=== PATIENT | male | born 1970 | race African-American/Black ===

== ENCOUNTER → 2016-12-19 | Day surgery (SDC) | payer BC ==
[~2016-12-19] MED LIST: ALLEGRA60 M1 PO; AMOXICILLIN250 MG PO; BENTYL20 MG PO; FLEXERIL10 MG; LORTAB 5/500 TA1 TA1 PO; NO MEDICATIONS; NORCO1 TAB 10/3; ZITHROMAX PO
--- NOTE | ~2016-12-19 | OR ---
Unit #: [id number] #: [id number] Patient: JUSTUS SOSA [id number] [address] [place], [place] [address] [id number] O MR#: [id number] NAME: JUSTUS SOSA ROOM: Date of Procedure: 12/19/2016 Admission Date: 12/19/2016 Surgeon: Polo Lucero M.D. : 1970 Attending Physician: Polo Lucero M.D. Referring Physician: Polo Lucero M.D. Primary Care Physician: Jeremy Miranda M.D. OPERATIVE REPORT PREOPERATIVE DIAGNOSES Colorectal cancer screening in a high-risk patient. The patient has personal history of colon polyps and family history of colon cancer. PROCEDURES PERFORMED Colonoscopy and polypectomy. POSTOPERATIVE DIAGNOSES 1. The patient had 2 sessile polyps, both were located in the proximal and distal sigmoid colon. These were about 4 to 5 mm each and were removed using snare polypectomy. 2. Mild sigmoid and descending colon diverticulosis. 3. Rest of the examination up to cecum and terminal ileum was normal. The quality of the prep was good. RECOMMENDATIONS 1. Follow up results of polyp histology. 2. Consider repeat colonoscopy in 5 years. SEDATION USED MAC. DESCRIPTION OF PROCEDURE Following detailed explanation of potential risks and complications of a colonoscopy, namely perforation, bleeding, and complications related to sedation, the patient was brought to GI lab and laid in the left lateral decubitus position. A digital rectal examination was performed, which was normal. Lubricated tip of the Olympus video colonoscope was inserted through the anus and advanced under direct vision. The scope was advanced and passed up to sigmoid into descending colon. Scant small diverticula were noted in this area. The scope tip was then navigated all the way up to cecum with visualization of the ileocecal valve and the appendiceal orifice. Preparation was good with good visualization and photodocumentation was obtained. Successive segments of the colonic mucosa were examined upon withdrawal and appeared unremarkable except for 2 sessile polyps, one each in the proximal and distal sigmoid colon. These were small about 5 mm each, both were removed using snare polypectomy. They were retrieved and sent for histology. No additional polyps noted. Other than the left-sided diverticula, no other abnormalities were found. The patient did not have any hemorrhoids at anal verge. The scope was then withdrawn. The patient returned to the recovery area. The patient tolerated the procedure without any Unit #: [id number] #: [id number] Patient: JUSTUS SOSA postprocedure complications. Dictated by.Brian Henry TD: 12/20/2016 01:22 JOB #: [id number] OPERATIVE REPORT Page 1 of 1 X Polo Lucero MD X PROCEDURE OPERATIVE NOTE
== END | disposition home or self-care (01) ==
LOC: COPS 12:01
DX: Z12.11 Encounter for screening for malignant neoplasm of colon (principal); D12.5 Benign neoplasm of sigmoid colon; K57.30 Diverticulosis of large intestine without perforation or abscess without bleeding; Z86.010 Personal history of colon polyps; Z80.0 Family history of malignant neoplasm of digestive organs; Z96.641 Presence of right artificial hip joint
CPT/HCPCS: 88305; J2250